=== PATIENT | male | born 1950 | race Caucasian/White ===

== ENCOUNTER 2021-12-25 12:45 | Inpatient (IN) ==
[2021-12-25] MEDS ORDERED: Gadolinium Contrast Agent (WT Based) IV PRN (13:58)
[2021-12-25] MEDS ORDERED: Dextrose Gel 15 GM/37.5 ML TUBE PO PRN ×2 (14:22)
[2021-12-25] MEDS ORDERED: Ondansetron 4 MG/2 ML VIAL IVP PRN (14:22)
[2021-12-25] MEDS ORDERED: D5% in Water 1,000 ML IVC PRN (14:22)
[2021-12-25] MEDS ORDERED: *HR* Dextrose 50 % in Water (Syg) 50 ML SYRINGE IVP PRN (14:22)
[2021-12-25] MEDS ORDERED: Naloxone 0.4 MG/ML INJ IVP PRN (14:22)
[2021-12-25] MEDS ORDERED: Acetaminophen 325 MG TABLET PO PRN (14:22)
[2021-12-25 15:29] LABS: Mean Corpuscular Volume 106.4 fL (83.0-100.0)
[2021-12-25 15:31] LABS: Hematocrit 18.4 % (37.5-50.1); Immature Platelets 5.2 % (1.1-6.1); Mean Corpuscular Hemoglobin 32.9 pg (28.0-33.3); Mean Platelet Volume 11.1 fL (9.4-12.4); Nucleated Red Blood Cells 0.6 /100 WBC (0); Red Blood Count 1.73 M/mcL (4.19-5.50); White Blood Count 3.6 K/mcL (4.3-11.1)
[2021-12-25 15:54] LABS: Albumin 2.9 g/dL (3.5-5.7); Albumin/Globulin Ratio 0.5 (1.1-2.2); Bilirubin,Total 1.2 mg/dL (0.3-1.0); Calcium 10.1 mg/dL (8.6-10.3); Globulin 5.6 g/dL (2.4-3.5); Potassium 4.6 mEq/L (3.5-5.1); Total Protein 8.5 g/dL (6.4-8.9)
[2021-12-25 16:15] LABS: Platelet Count 53 K/mcL (140-400)
[2021-12-25 16:20] LABS: Hemoglobin 5.7 g/dL (12.9-16.9)
[2021-12-25 16:29] LABS: Anisocytosis 1+ (Not Present); Lymphocytes # 2.8 K/mcL (0.6-4.6); Neutrophils # 0.8 K/mcL (1.6-8.9); Platelet Estimate Decreased (Normal)
[2021-12-25] MEDS ORDERED: *HR* Heparin 5,000 UNIT/ML VIAL SQ SCH (18:00)
[2021-12-25] MEDS ORDERED: 0.9 % Sodium Chloride 250 ML ONE (18:24)
[2021-12-25] MEDS: Insulin LISPRO 300 UNITS/3 ML VIAL SUBQ SCH (18:55)
[2021-12-25] MEDS: carvediloL 25 MG TABLET PO SCH (18:55)
[2021-12-25] MEDS: 0.9 % Sodium Chloride 1,000 ML IVC SCH (22:54)
[2021-12-25 23:13] LABS: Estimated Average Glucose 197 mg/dl; Hemoglobin A1C 8.5 %
[2021-12-26 02:06] LABS: Basophils % 0.4 %; Eosinophils % 0.4 %; Immature Granulocytes % 0.4 % (0-4); Mean Platelet Volume 11.3 fL (9.4-12.4); Segmented Neutrophils % 19.6 %
[2021-12-26 02:08] LABS: VBG Ionized Calcium 1.35 mmol/L (1.15-1.35)
[2021-12-26 02:08] LABS: Hematocrit 19.6 % (37.5-50.1); Hemoglobin 6.1 g/dL (12.9-16.9); Immature Platelets 6.4 % (1.1-6.1); Lymphocytes # 1.1 K/mcL (0.6-4.6); Mean Corpuscular HGB Conc 31.1 g/dL (31.6-35.5); Mean Corpuscular Volume 99.5 fL (83.0-100.0); Monocytes # 1.2 K/mcL (0.0-1.3); Monocytes % 41.2 %; Neutrophils # 0.6 K/mcL (1.6-8.9); Red Blood Count 1.97 M/mcL (4.19-5.50); Red Cell Distribution Width 20.7 % (11.5-14.5); White Blood Count 2.8 K/mcL (4.3-11.1)
[2021-12-26 02:14] LABS: Platelet Count 56 K/mcL (140-400)
[2021-12-26 02:27] LABS: Magnesium 1.9 mg/dL (1.6-2.6); Potassium 3.9 mEq/L (3.5-5.1)
[2021-12-26 02:28] LABS: % Iron Saturation 56 % (20-55); Albumin 2.8 g/dL (3.5-5.7); Albumin/Globulin Ratio 0.5 (1.1-2.2); Bilirubin,Direct 0.5 mg/dL (0.0-0.2); Bilirubin,Total 1.5 mg/dL (0.3-1.0); Globulin 5.5 g/dL (2.4-3.5); Iron 135 mcg/dL (65-175); Total Protein 8.3 g/dL (6.4-8.9); Transferrin 173 mg/dL (203-362)
[2021-12-26 02:37] LABS: Prostate Specific Antigen 0.71 ng/mL (Less than 4.00)
[2021-12-26 02:45] LABS: Anisocytosis 2+ (Not Present); Ferritin 332 ng/mL (20-250); Microcytosis Present (Not Present); Platelet Estimate Decreased (Normal)
[2021-12-26 02:50] LABS: Folate 6.4 ng/mL (3.0-16.0)
[2021-12-26] MEDS ORDERED: 0.9 % Sodium Chloride 250 ML ONE (03:09)
[2021-12-26 03:56] LABS: Bilirubin,Urine Negative (Negative); Blood,Urine Negative (Negative); Clarity,Urine Clear (Clear); Color,Urine Light-Yellow (Yellow); Glucose,Urine (UA) Normal (Normal); Ketones,Urine Negative (Negative); Leukocyte Esterase,Urine Negative (Negative); Nitrite,Urine Negative (Negative); PH,Urine 5.5 pH Units (5.0-8.0); Protein,Urine Trace mg/dL (Neg-Trace); Urobilinogen,Urine Normal (Normal)
[2021-12-26 04:10] LABS: Sodium, Urine 53.8 mEq/L
[2021-12-26] MEDS: Insulin LISPRO 300 UNITS/3 ML VIAL SUBQ SCH ×3 (07:30→18:43)
[2021-12-26 07:57] LABS: Hematocrit 21.7 % (37.5-50.1)
[2021-12-26 08:04] LABS: INR 1.3; Prothrombin Time 14.6 Seconds (9.4-12.1)
[2021-12-26] MEDS ORDERED: Lisinopril-HCTZ 20-12.5mg TABLET PO SCH (09:00)
[2021-12-26] MEDS: amLODIPine 5 MG TABLET PO SCH (10:21)
[2021-12-26] MEDS: Cyanocobalamin (B-12) 1,000 MCG/ML VIAL SQ SCH (10:21)
[2021-12-26] MEDS: carvediloL 25 MG TABLET PO SCH ×2 (10:21→18:40)
[2021-12-26] MEDS: *HR* HYDROcodone/Acet 5/325 mg TABLET PO PRN (10:36)
[2021-12-26] MEDS ORDERED: 0.9 % Sodium Chloride 500 ML ONE (10:54)
[2021-12-26] MEDS ORDERED: *HR* Midazolam HCl 2 MG/2 ML VIAL IVP ONE (11:02)
[2021-12-26] MEDS ORDERED: *HR* FentaNYL (PF) 100 MCG/2 ML VIAL IVP ONE (11:02)
[2021-12-26 13:17] LABS: Uric Acid 15.7 mg/dL (2.3-7.6)
[2021-12-26 13:33] LABS: Thyroid Stimulating Hormone 0.152 mcIU/mL (0.340-5.600)
[2021-12-26] MEDS: 0.9 % Sodium Chloride 1,000 ML IVC SCH ×2 (20:46→22:56)
[2021-12-27 05:58] LABS: Red Blood Count 2.16 M/mcL (4.19-5.50)
[2021-12-27 06:00] LABS: Hematocrit 21.6 % (37.5-50.1); Hemoglobin 6.9 g/dL (12.9-16.9); Immature Platelets 5.4 % (1.1-6.1); Mean Corpuscular HGB Conc 31.9 g/dL (31.6-35.5); Mean Corpuscular Hemoglobin 31.9 pg (28.0-33.3); Red Cell Distribution Width 20.8 % (11.5-14.5); White Blood Count 4.4 K/mcL (4.3-11.1)
[2021-12-27 06:09] LABS: Calcium 9.4 mg/dL (8.6-10.3); Magnesium 1.9 mg/dL (1.6-2.6); Potassium 3.8 mEq/L (3.5-5.1)
[2021-12-27 06:11] LABS: Albumin 2.6 g/dL (3.5-5.7); Albumin/Globulin Ratio 0.5 (1.1-2.2); Bilirubin,Direct 0.6 mg/dL (0.0-0.2); Bilirubin,Indirect 0.7 mg/dL (0.0-1.0); Bilirubin,Total 1.3 mg/dL (0.3-1.0); Globulin 5.3 g/dL (2.4-3.5); Total Protein 7.9 g/dL (6.4-8.9)
[2021-12-27 06:14] LABS: Platelet Count 51 K/mcL (140-400)
[2021-12-27 06:39] LABS: Neutrophils # 0.9 K/mcL (1.6-8.9)
[2021-12-27 06:40] LABS: Lymphocytes # 2.8 K/mcL (0.6-4.6); Monocytes # 0.7 K/mcL (0.0-1.3); Platelet Estimate Decreased (Normal)
[2021-12-27] MEDS: Insulin LISPRO 300 UNITS/3 ML VIAL SUBQ SCH ×3 (07:42→17:20)
[2021-12-27] MEDS: carvediloL 25 MG TABLET PO SCH ×2 (08:00→17:20)
[2021-12-27] MEDS: amLODIPine 5 MG TABLET PO SCH (08:01)
[2021-12-27] MEDS: Folic Acid 1 MG TABLET PO SCH (08:01)
[2021-12-27] MEDS ORDERED: 0.9 % Sodium Chloride 250 ML IVC SCH (08:30)
[2021-12-27] MEDS: Cyanocobalamin (B-12) 1,000 MCG/ML VIAL SQ SCH (09:39)
[2021-12-27] MEDS ORDERED: RASBURICASE IVPB ONE (09:47)
[2021-12-27] MEDS ORDERED: SODIUM CHLORIDE 0.9% IVPB ONE (09:47)
[2021-12-27] MEDS: allopurinoL 300 MG TABLET PO SCH (10:11)
[2021-12-27] MEDS: polyethylene glycoL 3350 17 GM POWD.PACK PO SCH (12:49)
[2021-12-27] MEDS: 0.9 % Sodium Chloride 1,000 ML IVC SCH (13:22)
[2021-12-28] MEDS: 0.9 % Sodium Chloride 1,000 ML IVC SCH (04:05)
[2021-12-28 04:57] LABS: Hemoglobin 7.6 g/dL (12.9-16.9)
[2021-12-28 05:00] LABS: Hematocrit 23.3 % (37.5-50.1); Mean Corpuscular HGB Conc 32.6 g/dL (31.6-35.5); Mean Corpuscular Hemoglobin 31.5 pg (28.0-33.3); Mean Corpuscular Volume 96.7 fL (83.0-100.0); Mean Platelet Volume 10.6 fL (9.4-12.4); Nucleated Red Blood Cells 0.9 /100 WBC (0); Red Blood Count 2.41 M/mcL (4.19-5.50); Red Cell Distribution Width 19.9 % (11.5-14.5); White Blood Count 5.5 K/mcL (4.3-11.1)
[2021-12-28 05:04] LABS: Platelet Count 48 K/mcL (140-400)
[2021-12-28 05:16] LABS: BUN/Creatinine Ratio 21 (6-26); Blood Urea Nitrogen 27 mg/dL (8-23); Calcium 9.7 mg/dL (8.6-10.3); Carbon Dioxide 27 mEq/L (23-29); Chloride 101 mEq/L (98-107); Glucose 78 mg/dL (70-105); Magnesium 1.9 mg/dL (1.6-2.6); Osmolality,Calculated 286 (280-300); Potassium 4.2 mEq/L (3.5-5.1); Sodium 136 mEq/L (136-145); eGFR For African Americans > 60 (> 60); eGFR For Non-African Americans 55 (> 60)
[2021-12-28 05:17] LABS: Anisocytosis 1+ (Not Present); Lymphocytes # 3.5 K/mcL (0.6-4.6); Monocytes # 0.7 K/mcL (0.0-1.3); Neutrophils # 1.3 K/mcL (1.6-8.9); Platelet Estimate Decreased (Normal); Reactive Lymphocytes Present (Not Present)
[2021-12-28] MEDS: Insulin LISPRO 300 UNITS/3 ML VIAL SUBQ SCH ×3 (09:13→18:07)
[2021-12-28] MEDS: Folic Acid 1 MG TABLET PO SCH (09:28)
[2021-12-28] MEDS: carvediloL 25 MG TABLET PO SCH ×2 (09:28→18:00)
[2021-12-28] MEDS: amLODIPine 5 MG TABLET PO SCH (09:28)
[2021-12-28] MEDS: polyethylene glycoL 3350 17 GM POWD.PACK PO SCH (09:29)
[2021-12-28] MEDS: allopurinoL 300 MG TABLET PO SCH (09:29)
[2021-12-28] MEDS: Cyanocobalamin (B-12) 1,000 MCG/ML VIAL SQ SCH (09:29)
[2021-12-28 11:29] LABS: Total Volume 24 Hour,Urine 1.4 Liters (0.80-1.80)
[2021-12-28] MEDS: Simethicone 80 MG TAB.CHEW PO SCH ×3 (11:32→20:39)
[2021-12-28 15:47] LABS: Kappa Qnt Free Light Chains 5.65 mg/L (3.30-19.40); Lambda Qnt Free Light Chains 24.82 mg/L (5.71-26.30)
[2021-12-29] MEDS: *HR* HYDROcodone/Acet 5/325 mg TABLET PO PRN (00:20)
[2021-12-29] MEDS: 0.9 % Sodium Chloride 1,000 ML IVC SCH ×2 (00:21→16:43)
[2021-12-29 01:06] LABS: Mean Corpuscular HGB Conc 32.3 g/dL (31.6-35.5); Nucleated Red Blood Cells 0.5 /100 WBC (0); Red Cell Distribution Width 19.5 % (11.5-14.5)
[2021-12-29 01:07] LABS: Hematocrit 23.2 % (37.5-50.1); Hemoglobin 7.5 g/dL (12.9-16.9); Immature Platelets 4.6 % (1.1-6.1); Mean Corpuscular Hemoglobin 31.8 pg (28.0-33.3); Mean Corpuscular Volume 98.3 fL (83.0-100.0); Mean Platelet Volume 10.2 fL (9.4-12.4); Red Blood Count 2.36 M/mcL (4.19-5.50); White Blood Count 3.8 K/mcL (4.3-11.1)
[2021-12-29 01:09] LABS: Platelet Count 41 K/mcL (140-400)
[2021-12-29 01:41] LABS: BUN/Creatinine Ratio 18 (6-26); Blood Urea Nitrogen 22 mg/dL (8-23); Calcium 9.3 mg/dL (8.6-10.3); Carbon Dioxide 25 mEq/L (23-29); Chloride 103 mEq/L (98-107); Glucose 149 mg/dL (70-105); Magnesium 1.9 mg/dL (1.6-2.6); Osmolality,Calculated 292 (280-300); Potassium 3.7 mEq/L (3.5-5.1); Sodium 138 mEq/L (136-145); Uric Acid < 1.5 mg/dL (2.3-7.6); eGFR For African Americans > 60 (> 60); eGFR For Non-African Americans 59 (> 60)
[2021-12-29 02:19] LABS: Lymphocytes # 3.6 K/mcL (0.6-4.6); Neutrophils # 0.2 K/mcL (1.6-8.9)
[2021-12-29 02:20] LABS: Anisocytosis 1+ (Not Present); Hypochromasia Present (Not Present); Platelet Estimate Decreased (Normal)
[2021-12-29] MEDS: carvediloL 25 MG TABLET PO SCH ×2 (08:12→16:40)
[2021-12-29] MEDS: Multivit/Ca/Min/Fe/FA 1 TAB TABLET PO SCH (08:12)
[2021-12-29] MEDS: Insulin LISPRO 300 UNITS/3 ML VIAL SUBQ SCH ×3 (08:13→16:42)
[2021-12-29] MEDS: Simethicone 80 MG TAB.CHEW PO SCH ×3 (08:13→19:45)
[2021-12-29] MEDS: Cyanocobalamin (B-12) 1,000 MCG TABLET PO SCH (08:13)
[2021-12-29] MEDS: Folic Acid 1 MG TABLET PO SCH (08:13)
[2021-12-29] MEDS: polyethylene glycoL 3350 17 GM POWD.PACK PO SCH (08:13)
[2021-12-29] MEDS: allopurinoL 300 MG TABLET PO SCH (08:13)
[2021-12-29] MEDS: amLODIPine 5 MG TABLET PO SCH (08:13)
[2021-12-29] MEDS: Cyanocobalamin (B-12) 1,000 MCG/ML VIAL SQ SCH (08:17)
[2021-12-29 13:02] LABS: Alanine Aminotransferase 81 Units/L (7-52); Albumin 2.5 g/dL (3.5-5.7); Albumin/Globulin Ratio 0.5 (1.1-2.2); Alkaline Phosphatase 73 Units/L (34-104); Aspartate Amino Transferase 66 Units/L (13-39); Bilirubin,Direct 0.6 mg/dL (0.0-0.2); Bilirubin,Indirect 0.7 mg/dL (0.0-1.0); Bilirubin,Total 1.3 mg/dL (0.3-1.0); Globulin 5.5 g/dL (2.4-3.5)
[2021-12-29] MEDS: Insulin DETEMIR 100 UNIT/ML X5UNITS SUBQ SCH (19:45)
[2021-12-30 05:09] LABS: Basophils % 0.4 %; Mean Corpuscular Volume 99.2 fL (83.0-100.0); Nucleated Red Blood Cells 0.4 /100 WBC (0); Red Cell Distribution Width 18.9 % (11.5-14.5)
[2021-12-30 05:11] LABS: Eosinophils % 0.2 %; Immature Granulocytes % 0.8 % (0-4); Immature Platelets 4.4 % (1.1-6.1); Lymphocytes # 1.2 K/mcL (0.6-4.6); Lymphocytes % 25.5 %; Mean Corpuscular Hemoglobin 31.7 pg (28.0-33.3); Mean Platelet Volume 10.8 fL (9.4-12.4); Monocytes % 64.5 %; Neutrophils # 0.4 K/mcL (1.6-8.9); Red Blood Count 2.52 M/mcL (4.19-5.50); Segmented Neutrophils % 8.6 %; White Blood Count 4.7 K/mcL (4.3-11.1)
[2021-12-30 05:12] LABS: Platelet Count 43 K/mcL (140-400)
[2021-12-30 05:25] LABS: Alanine Aminotransferase 82 Units/L (7-52); Albumin 2.5 g/dL (3.5-5.7); Albumin/Globulin Ratio 0.5 (1.1-2.2); Alkaline Phosphatase 87 Units/L (34-104); Aspartate Amino Transferase 52 Units/L (13-39); Bilirubin,Direct 0.5 mg/dL (0.0-0.2); Bilirubin,Indirect 0.6 mg/dL (0.0-1.0); Bilirubin,Total 1.1 mg/dL (0.3-1.0); Globulin 5.4 g/dL (2.4-3.5); Total Protein 7.9 g/dL (6.4-8.9)
[2021-12-30 05:29] LABS: Anisocytosis 2+ (Not Present); Macrocytosis Present (Not Present); Platelet Estimate Marked Decrease (Normal)
[2021-12-30 05:46] LABS: Alpha 2 Globulin (PEP) 0.78 g/dL (0.48-1.05); Beta Globulin (PEP) 4.25 g/dL (0.48-1.10)
[2021-12-30 06:07] LABS: BUN/Creatinine Ratio 14 (6-26); Blood Urea Nitrogen 16 mg/dL (8-23); Calcium 9.4 mg/dL (8.6-10.3); Carbon Dioxide 25 mEq/L (23-29); Chloride 103 mEq/L (98-107); Glucose 101 mg/dL (70-105); Magnesium 1.9 mg/dL (1.6-2.6); Osmolality,Calculated 285 (280-300); Potassium 3.9 mEq/L (3.5-5.1); Sodium 137 mEq/L (136-145); eGFR For African Americans > 60 (> 60); eGFR For Non-African Americans > 60 (> 60)
[2021-12-30] MEDS: Insulin LISPRO 300 UNITS/3 ML VIAL SUBQ SCH ×3 (08:45→16:28)
[2021-12-30] MEDS: Multivit/Ca/Min/Fe/FA 1 TAB TABLET PO SCH (08:54)
[2021-12-30] MEDS: allopurinoL 300 MG TABLET PO SCH (08:55)
[2021-12-30] MEDS: amLODIPine 5 MG TABLET PO SCH (08:55)
[2021-12-30] MEDS: Folic Acid 1 MG TABLET PO SCH (08:55)
[2021-12-30] MEDS: carvediloL 25 MG TABLET PO SCH ×2 (08:55→17:51)
[2021-12-30] MEDS: Cyanocobalamin (B-12) 1,000 MCG TABLET PO SCH (08:55)
[2021-12-30 10:39] LABS: Immunoglobulin G 246 mg/dL (768-1632); Immunoglobulin M < 10 mg/dL (35-263)
[2021-12-30 10:40] LABS: IFE Reflexed IFE Done; Immunoglobulin A 3305 mg/dL (68-408)
[2021-12-30] MEDS: polyethylene glycoL 3350 17 GM POWD.PACK PO SCH (10:45)
[2021-12-30] MEDS ORDERED: Perflutren Lipid Microsphere 1.3 ML in 0.9 % Sodium Chloride 8.7 ML IVP PRN (13:54)
[2021-12-30] MEDS: Insulin DETEMIR 100 UNIT/ML X5UNITS SUBQ SCH (19:55)
[2021-12-31 05:14] LABS: Basophils % 0.4 %; Eosinophils % 0.4 %; Red Blood Count 2.48 M/mcL (4.19-5.50)
[2021-12-31 05:16] LABS: Hematocrit 24.9 % (37.5-50.1); Hemoglobin 7.7 g/dL (12.9-16.9); Immature Granulocytes % 0.7 % (0-4); Immature Platelets 4.5 % (1.1-6.1); Lymphocytes % 24.9 %; Mean Corpuscular HGB Conc 30.9 g/dL (31.6-35.5); Mean Corpuscular Volume 100.4 fL (83.0-100.0); Mean Platelet Volume 10.7 fL (9.4-12.4); Monocytes % 67.3 %; Neutrophils # 0.3 K/mcL (1.6-8.9); Red Cell Distribution Width 18.7 % (11.5-14.5); Segmented Neutrophils % 6.3 %; White Blood Count 5.4 K/mcL (4.3-11.1)
[2021-12-31 05:22] LABS: Lymphocytes # 1.3 K/mcL (0.6-4.6); Monocytes # 3.6 K/mcL (0.0-1.3); Platelet Count 40 K/mcL (140-400)
[2021-12-31 05:34] LABS: Albumin 2.4 g/dL (3.5-5.7); Albumin/Globulin Ratio 0.4 (1.1-2.2); Bilirubin,Direct 0.6 mg/dL (0.0-0.2); Bilirubin,Indirect 0.4 mg/dL (0.0-1.0); Globulin 5.5 g/dL (2.4-3.5); Total Protein 7.9 g/dL (6.4-8.9)
[2021-12-31 05:36] LABS: BUN/Creatinine Ratio 13 (6-26); Blood Urea Nitrogen 16 mg/dL (8-23); Calcium 9.6 mg/dL (8.6-10.3); Carbon Dioxide 26 mEq/L (23-29); Chloride 103 mEq/L (98-107); Glucose 132 mg/dL (70-105); Magnesium 2.1 mg/dL (1.6-2.6); Osmolality,Calculated 289 (280-300); Sodium 138 mEq/L (136-145); eGFR For African Americans > 60 (> 60); eGFR For Non-African Americans 58 (> 60)
[2021-12-31 05:37] LABS: Anisocytosis 1+ (Not Present); Hypochromasia Present (Not Present); Platelet Estimate Decreased (Normal)
[2021-12-31] MEDS: Folic Acid 1 MG TABLET PO SCH (09:32)
[2021-12-31] MEDS: carvediloL 25 MG TABLET PO SCH ×2 (09:32→18:26)
[2021-12-31] MEDS: allopurinoL 300 MG TABLET PO SCH (09:32)
[2021-12-31] MEDS: Cyanocobalamin (B-12) 1,000 MCG TABLET PO SCH (09:32)
[2021-12-31] MEDS: amLODIPine 5 MG TABLET PO SCH (09:32)
[2021-12-31] MEDS: Multivit/Ca/Min/Fe/FA 1 TAB TABLET PO SCH (09:32)
[2021-12-31] MEDS: polyethylene glycoL 3350 17 GM POWD.PACK PO SCH (09:33)
[2021-12-31] MEDS: Insulin LISPRO 300 UNITS/3 ML VIAL SUBQ SCH ×3 (09:33→18:27)
[2021-12-31] MEDS: Insulin DETEMIR 100 UNIT/ML X5UNITS SUBQ SCH (20:34)
[2021-12-31] MEDS ORDERED: 0.9 % Sodium Chloride 250 ML ONE (23:47)
[2022-01-01] MEDS ORDERED: 0.9 % Sodium Chloride 250 ML ONE (02:28)
[2022-01-01 07:24] LABS: Hematocrit 24.1 % (37.5-50.1); Hemoglobin 7.5 g/dL (12.9-16.9); Immature Platelets 3.6 % (1.1-6.1); Mean Corpuscular HGB Conc 31.1 g/dL (31.6-35.5); Mean Corpuscular Volume 99.6 fL (83.0-100.0); Mean Platelet Volume 10.5 fL (9.4-12.4); Red Blood Count 2.42 M/mcL (4.19-5.50); Red Cell Distribution Width 18.5 % (11.5-14.5); White Blood Count 5.6 K/mcL (4.3-11.1)
[2022-01-01 07:27] LABS: Platelet Count 59 K/mcL (140-400)
[2022-01-01 07:49] LABS: BUN/Creatinine Ratio 16 (6-26); Blood Urea Nitrogen 18 mg/dL (8-23); Calcium 9.5 mg/dL (8.6-10.3); Carbon Dioxide 26 mEq/L (23-29); Chloride 102 mEq/L (98-107); Glucose 112 mg/dL (70-105); Magnesium 2.2 mg/dL (1.6-2.6); Osmolality,Calculated 289 (280-300); Potassium 3.7 mEq/L (3.5-5.1); Sodium 138 mEq/L (136-145); eGFR For African Americans > 60 (> 60); eGFR For Non-African Americans > 60 (> 60)
[2022-01-01 07:51] LABS: Albumin 2.5 g/dL (3.5-5.7); Albumin/Globulin Ratio 0.5 (1.1-2.2); Bilirubin,Direct 0.5 mg/dL (0.0-0.2); Bilirubin,Indirect 0.6 mg/dL (0.0-1.0); Bilirubin,Total 1.1 mg/dL (0.3-1.0); Globulin 5.2 g/dL (2.4-3.5); Total Protein 7.7 g/dL (6.4-8.9)
[2022-01-01] MEDS ORDERED: 0.9 % Sodium Chloride 250 ML IVC SCH ×3 (08:00→16:30)
[2022-01-01 08:16] LABS: Lymphocytes # 4.8 K/mcL (0.6-4.6); Neutrophils # 0.8 K/mcL (1.6-8.9); Reactive Lymphocytes Present (Not Present); Smudge Cells Present (Not Present)
[2022-01-01 08:17] LABS: Platelet Estimate Decreased (Normal); Rouleaux Present (Not Present)
[2022-01-01 08:18] LABS: Anisocytosis 1+ (Not Present)
[2022-01-01 08:57] LABS: Hepatitis B Surface Antigen Nonreactive (Nonreactive)
[2022-01-01 09:26] LABS: Hepatitis C Virus Antibody Nonreactive (Nonreactive)
[2022-01-01 09:27] LABS: Hepatitis B Core IgM Nonreactive (Nonreactive)
[2022-01-01 09:29] LABS: Hepatitis A Antibody IgM Nonreactive (Nonreactive)
[2022-01-01] MEDS: Insulin LISPRO 300 UNITS/3 ML VIAL SUBQ SCH ×3 (09:56→16:30)
[2022-01-01] MEDS: Cyanocobalamin (B-12) 1,000 MCG TABLET PO SCH (09:57)
[2022-01-01] MEDS: Folic Acid 1 MG TABLET PO SCH (09:57)
[2022-01-01] MEDS: amLODIPine 5 MG TABLET PO SCH (09:57)
[2022-01-01] MEDS: allopurinoL 300 MG TABLET PO SCH (09:57)
[2022-01-01] MEDS: Multivit/Ca/Min/Fe/FA 1 TAB TABLET PO SCH (09:57)
[2022-01-01] MEDS: polyethylene glycoL 3350 17 GM POWD.PACK PO SCH (09:57)
[2022-01-01] MEDS: carvediloL 25 MG TABLET PO SCH ×2 (09:59→17:30)
[2022-01-01] MEDS ORDERED: Acetaminophen IV 1,000 MG/100 ML BAG IVPB ONE (13:44)
[2022-01-01] MEDS ORDERED: Furosemide 40 MG/4 ML VIAL IVP ONE (15:00)
[2022-01-01] MEDS ORDERED: Furosemide 20 MG/2 ML VIAL IVP ONE (19:16)
[2022-01-01 19:45] LABS: Immature Granulocytes % 0.4 % (0-4); Mean Platelet Volume 9.4 fL (9.4-12.4)
[2022-01-01 19:47] LABS: Basophils % 0.2 %; Eosinophils % 0.4 %; Hematocrit 25.7 % (37.5-50.1); Hemoglobin 8.3 g/dL (12.9-16.9); Lymphocytes # 1.4 K/mcL (0.6-4.6); Mean Corpuscular HGB Conc 32.3 g/dL (31.6-35.5); Mean Corpuscular Hemoglobin 31.2 pg (28.0-33.3); Mean Corpuscular Volume 96.6 fL (83.0-100.0); Mean Platelet Volume 9.6 fL (9.4-12.4); Monocytes # 3.1 K/mcL (0.0-1.3); Monocytes % 62.8 %; Neutrophils # 0.4 K/mcL (1.6-8.9); Red Blood Count 2.66 M/mcL (4.19-5.50); Red Cell Distribution Width 18.4 % (11.5-14.5); Segmented Neutrophils % 8.2 %; White Blood Count 4.9 K/mcL (4.3-11.1)
[2022-01-01 19:49] LABS: Platelet Count 95 K/mcL (140-400)
[2022-01-01] MEDS: 0.9 % Sodium Chloride 1,000 ML IVC SCH ×2 (20:01→20:02)
[2022-01-01 20:16] LABS: Platelet Estimate Decreased (Normal); Reactive Lymphocytes Present (Not Present); Smudge Cells Present (Not Present)
[2022-01-01] MEDS: Insulin DETEMIR 100 UNIT/ML X5UNITS SUBQ SCH (23:03)
[2022-01-02 02:17] LABS: Mean Platelet Volume 9.3 fL (9.4-12.4)
[2022-01-02 02:19] LABS: Basophils % 0.3 %; Immature Granulocytes % 0.3 % (0-4); Mean Corpuscular HGB Conc 31.9 g/dL (31.6-35.5); Red Blood Count 2.68 M/mcL (4.19-5.50)
[2022-01-02 02:21] LABS: Eosinophils % 0.3 %; Hemoglobin 8.3 g/dL (12.9-16.9); Immature Platelets 2.8 % (1.1-6.1); Lymphocytes # 1.8 K/mcL (0.6-4.6); Lymphocytes % 30.4 %; Mean Platelet Volume 9.8 fL (9.4-12.4); Monocytes # 3.6 K/mcL (0.0-1.3); Monocytes % 62.1 %; Neutrophils # 0.4 K/mcL (1.6-8.9); Red Cell Distribution Width 18.4 % (11.5-14.5); Segmented Neutrophils % 6.6 %; White Blood Count 5.8 K/mcL (4.3-11.1)
[2022-01-02 02:23] LABS: Platelet Count 89 K/mcL (140-400)
[2022-01-02 02:30] LABS: BUN/Creatinine Ratio 14 (6-26); Blood Urea Nitrogen 17 mg/dL (8-23); Calcium 9.6 mg/dL (8.6-10.3); Carbon Dioxide 28 mEq/L (23-29); Chloride 99 mEq/L (98-107); Glucose 135 mg/dL (70-105); Magnesium 2.1 mg/dL (1.6-2.6); Osmolality,Calculated 290 (280-300); Potassium 3.4 mEq/L (3.5-5.1); Sodium 138 mEq/L (136-145); eGFR For African Americans > 60 (> 60); eGFR For Non-African Americans > 60 (> 60)
[2022-01-02 02:31] LABS: Albumin 2.6 g/dL (3.5-5.7); Albumin/Globulin Ratio 0.5 (1.1-2.2); Bilirubin,Direct 0.5 mg/dL (0.0-0.2); Bilirubin,Indirect 0.8 mg/dL (0.0-1.0); Bilirubin,Total 1.3 mg/dL (0.3-1.0); Globulin 5.5 g/dL (2.4-3.5); Total Protein 8.1 g/dL (6.4-8.9)
[2022-01-02 02:52] LABS: Anisocytosis 1+ (Not Present); Platelet Estimate Decreased (Normal)
[2022-01-02 02:53] LABS: Macrocytosis Present (Not Present); Smudge Cells Present (Not Present)
[2022-01-02 06:12] LABS: Mean Platelet Volume 9.4 fL (9.4-12.4)
[2022-01-02] MEDS ORDERED: Vancomycin 1,000 MG VIAL ONE ×2 (08:14→15:21)
[2022-01-02] MEDS ORDERED: Bupivacaine/EPI 1:200k 0.25% 50 ML VIAL ONE ×2 (08:14→15:21)
[2022-01-02] MEDS: Cyanocobalamin (B-12) 1,000 MCG TABLET PO SCH (08:53)
[2022-01-02] MEDS: Folic Acid 1 MG TABLET PO SCH (08:53)
[2022-01-02] MEDS: polyethylene glycoL 3350 17 GM POWD.PACK PO SCH (08:53)
[2022-01-02] MEDS: allopurinoL 300 MG TABLET PO SCH (08:53)
[2022-01-02] MEDS: amLODIPine 5 MG TABLET PO SCH (08:53)
[2022-01-02] MEDS: Multivit/Ca/Min/Fe/FA 1 TAB TABLET PO SCH (08:53)
[2022-01-02] MEDS: carvediloL 25 MG TABLET PO SCH ×2 (08:53→16:44)
[2022-01-02] MEDS: Insulin LISPRO 300 UNITS/3 ML VIAL SUBQ SCH ×3 (08:54→16:44)
[2022-01-02 14:41] LABS: Basophils % 0.2 %; Eosinophils % 0.4 %; Hemoglobin 8.3 g/dL (12.9-16.9); Immature Granulocytes % 0.6 % (0-4); Lymphocytes # 1.7 K/mcL (0.6-4.6); Lymphocytes % 31.2 %; Mean Corpuscular HGB Conc 31.9 g/dL (31.6-35.5); Mean Corpuscular Hemoglobin 30.9 pg (28.0-33.3); Mean Corpuscular Volume 96.7 fL (83.0-100.0); Mean Platelet Volume 9.4 fL (9.4-12.4); Monocytes # 3.3 K/mcL (0.0-1.3); Monocytes % 61.2 %; Neutrophils # 0.4 K/mcL (1.6-8.9); Platelet Count 105 K/mcL (140-400); Red Blood Count 2.69 M/mcL (4.19-5.50); Red Cell Distribution Width 18.6 % (11.5-14.5); Segmented Neutrophils % 6.4 %; White Blood Count 5.4 K/mcL (4.3-11.1)
[2022-01-02 15:12] LABS: Platelet Estimate Slight Decrease (Normal); Reactive Lymphocytes Present (Not Present)
[2022-01-02] MEDS ORDERED: *HR* Phenylephrine 10 MG/ML VIAL ONE (15:23)
[2022-01-02] MEDS ORDERED: *HR* Rocuronium Bromide 50 MG/5 ML VIAL ONE (15:28)
[2022-01-02] MEDS ORDERED: Ondansetron 4 MG/2 ML VIAL ONE (15:28)
[2022-01-02] MEDS ORDERED: *HR* FentaNYL (PF) 100 MCG/2 ML VIAL ONE ×2 (15:28→22:19)
[2022-01-02] MEDS ORDERED: *HR* Propofol 200 MG/20 ML VIAL IVP ONE (15:28)
[2022-01-02] MEDS ORDERED: Lidocaine -MPF 4% 5 ML AMPUL ONE (15:28)
[2022-01-02] MEDS ORDERED: 0.9 % Sodium Chloride 1,000 ML ONE (15:33)
[2022-01-02] MEDS ORDERED: *HR* Remifentanil 2 MG VIAL IVP ONE (15:41)
[2022-01-02] MEDS ORDERED: tiZANidine 4 MG TABLET PO ONE (15:41)
[2022-01-02] MEDS ORDERED: Famotidine 20 MG/2 ML VIAL IVP ONE (15:41)
[2022-01-02] MEDS ORDERED: Gabapentin 300 MG CAPSULE PO ONE (15:42)
[2022-01-02] MEDS ORDERED: *HR* Norepinephrine 4 MG/4 ML VIAL IVC ONE (15:47)
[2022-01-02] MEDS ORDERED: Albumin Human 5% 0 GM/0 ML IV.SOLN ONE (15:48)
[2022-01-02] MEDS ORDERED: Ondansetron 4 MG/2 ML VIAL IVP PRN ×3 (17:14→23:52)
[2022-01-02] MEDS ORDERED: *HR* Remifentanil 1 MG VIAL IVP ONE (19:58)
[2022-01-02] MEDS ORDERED: Tranexamic Acid 1,000 MG/10 ML VIAL ONE (20:05)
[2022-01-02 20:56] LABS: INR 1.4; Prothrombin Time 15.4 Seconds (9.4-12.1)
[2022-01-02] MEDS: *HR* HYDROmorphone PF 0.5 MG/0.5 ML SYRINGE IVP PRN ×2 (22:26→22:35)
[2022-01-02 22:51] LABS: Basophils % 0.3 %; Eosinophils % 0.1 %; Mean Corpuscular Volume 95.8 fL (83.0-100.0); Mean Platelet Volume 9.9 fL (9.4-12.4)
[2022-01-02 22:53] LABS: Hematocrit 24.8 % (37.5-50.1); Hemoglobin 8.1 g/dL (12.9-16.9); Immature Granulocytes % 0.3 % (0-4); Immature Platelets 2.5 % (1.1-6.1); Lymphocytes # 2.7 K/mcL (0.6-4.6); Lymphocytes % 36.5 %; Mean Corpuscular HGB Conc 32.7 g/dL (31.6-35.5); Mean Corpuscular Hemoglobin 31.3 pg (28.0-33.3); Monocytes # 4.3 K/mcL (0.0-1.3); Monocytes % 58.1 %; Neutrophils # 0.4 K/mcL (1.6-8.9); Platelet Count 102 K/mcL (140-400); Red Blood Count 2.59 M/mcL (4.19-5.50); Red Cell Distribution Width 18.6 % (11.5-14.5); Segmented Neutrophils % 4.7 %; White Blood Count 7.4 K/mcL (4.3-11.1)
[2022-01-02 23:08] LABS: Alanine Aminotransferase 56 Units/L (7-52); Albumin 2.3 g/dL (3.5-5.7); Albumin/Globulin Ratio 0.5 (1.1-2.2); Alkaline Phosphatase 82 Units/L (34-104); Aspartate Amino Transferase 54 Units/L (13-39); BUN/Creatinine Ratio 14 (6-26); Bilirubin,Total 1.6 mg/dL (0.3-1.0); Blood Urea Nitrogen 17 mg/dL (8-23); Calcium 9.2 mg/dL (8.6-10.3); Carbon Dioxide 26 mEq/L (23-29); Chloride 104 mEq/L (98-107); Globulin 4.9 g/dL (2.4-3.5); Glucose 109 mg/dL (70-105); Osmolality,Calculated 292 (280-300); Potassium 3.7 mEq/L (3.5-5.1); Sodium 140 mEq/L (136-145); Total Protein 7.2 g/dL (6.4-8.9); eGFR For African Americans > 60 (> 60); eGFR For Non-African Americans > 60 (> 60)
[2022-01-02 23:23] LABS: Anisocytosis 1+ (Not Present); Platelet Estimate Decreased (Normal); Reactive Lymphocytes Present (Not Present)
[2022-01-02] MEDS ORDERED: Ringers Solution, Lactated 1,000 ML IVC SCH (23:52)
[2022-01-02] MEDS ORDERED: Naloxone 0.4 MG/ML INJ IVP PRN ×2 (23:52)
[2022-01-02] MEDS ORDERED: Acetaminophen 325 MG TABLET PO PRN (23:52)
[2022-01-03] MEDS: *HR* HYDROcodone/Acet 5/325 mg TABLET PO PRN ×2 (02:47→18:19)
[2022-01-03] MEDS: CeFAZolin 2 GM/120 ML BAG IVPB SCH ×2 (03:51→13:05)
[2022-01-03 07:25] LABS: Basophils % 0.5 %; Eosinophils % 0.3 %; Hemoglobin 7.6 g/dL (12.9-16.9); Immature Granulocytes % 0.8 % (0-4); Mean Corpuscular Hemoglobin 30.5 pg (28.0-33.3); Red Blood Count 2.49 M/mcL (4.19-5.50); Red Cell Distribution Width 18.9 % (11.5-14.5)
[2022-01-03 07:28] LABS: Hematocrit 24.1 % (37.5-50.1); Immature Platelets 1.9 % (1.1-6.1); Lymphocytes # 1.2 K/mcL (0.6-4.6); Lymphocytes % 31.9 %; Mean Corpuscular HGB Conc 31.5 g/dL (31.6-35.5); Mean Corpuscular Volume 96.8 fL (83.0-100.0); Mean Platelet Volume 9.7 fL (9.4-12.4); Monocytes % 57.6 %; Neutrophils # 0.3 K/mcL (1.6-8.9); Segmented Neutrophils % 8.9 %; White Blood Count 3.7 K/mcL (4.3-11.1)
[2022-01-03 07:32] LABS: INR 1.3; Prothrombin Time 14.3 Seconds (9.4-12.1)
[2022-01-03 07:34] LABS: Activated Partial Thrombo Time 31.4 Seconds (26.0-36.0)
[2022-01-03 07:35] LABS: Monocytes # 2.1 K/mcL (0.0-1.3); Platelet Count 90 K/mcL (140-400)
[2022-01-03] MEDS ORDERED: Furosemide 40 MG/4 ML VIAL IVP ONE (07:39)
[2022-01-03 07:40] LABS: BUN/Creatinine Ratio 16 (6-26); Blood Urea Nitrogen 21 mg/dL (8-23); Calcium 9.5 mg/dL (8.6-10.3); Carbon Dioxide 27 mEq/L (23-29); Chloride 101 mEq/L (98-107); Glucose 188 mg/dL (70-105); Osmolality,Calculated 294 (280-300); Sodium 138 mEq/L (136-145); eGFR For African Americans > 60 (> 60); eGFR For Non-African Americans 55 (> 60)
[2022-01-03 08:19] LABS: Platelet Estimate Decreased (Normal); Reactive Lymphocytes Present (Not Present)
[2022-01-03] MEDS: amLODIPine 5 MG TABLET PO SCH (09:25)
[2022-01-03] MEDS: carvediloL 25 MG TABLET PO SCH ×2 (09:25→18:12)
[2022-01-03] MEDS: Cyanocobalamin (B-12) 1,000 MCG TABLET PO SCH (09:26)
[2022-01-03] MEDS: Multivit/Ca/Min/Fe/FA 1 TAB TABLET PO SCH (09:26)
[2022-01-03] MEDS: allopurinoL 300 MG TABLET PO SCH (09:26)
[2022-01-03] MEDS: Folic Acid 1 MG TABLET PO SCH (09:26)
[2022-01-03] MEDS: Insulin LISPRO 300 UNITS/3 ML VIAL SUBQ SCH ×3 (09:37→18:19)
[2022-01-03] MEDS: *HR* OxyCODONE Immed Rel 5 MG TABLET PO PRN ×2 (14:06→22:45)
[2022-01-03] MEDS: Insulin DETEMIR 100 UNIT/ML X5UNITS SUBQ SCH (22:45)
[2022-01-04] MEDS ORDERED: *HR* LORazepam 0.5 MG TABLET PO PRN
[2022-01-04] MEDS ORDERED: dexAMETHasone 4 MG TABLET PO SCH
[2022-01-04 06:26] LABS: Basophils % 0.4 %; Eosinophils % 0.2 %; Hemoglobin 7.7 g/dL (12.9-16.9)
[2022-01-04 06:28] LABS: Hematocrit 24.4 % (37.5-50.1); Immature Granulocytes % 1.5 % (0-4); Immature Platelets 3.6 % (1.1-6.1); Lymphocytes # 1.8 K/mcL (0.6-4.6); Lymphocytes % 33.8 %; Mean Corpuscular HGB Conc 31.6 g/dL (31.6-35.5); Mean Corpuscular Hemoglobin 31.2 pg (28.0-33.3); Mean Corpuscular Volume 98.8 fL (83.0-100.0); Mean Platelet Volume 10.4 fL (9.4-12.4); Monocytes # 3.1 K/mcL (0.0-1.3); Monocytes % 57.4 %; Neutrophils # 0.4 K/mcL (1.6-8.9); Red Blood Count 2.47 M/mcL (4.19-5.50); Red Cell Distribution Width 18.4 % (11.5-14.5); Segmented Neutrophils % 6.7 %; White Blood Count 5.4 K/mcL (4.3-11.1)
[2022-01-04 06:51] LABS: BUN/Creatinine Ratio 16 (6-26); Blood Urea Nitrogen 19 mg/dL (8-23); Calcium 9.8 mg/dL (8.6-10.3); Carbon Dioxide 30 mEq/L (23-29); Chloride 98 mEq/L (98-107); Glucose 110 mg/dL (70-105); Osmolality,Calculated 285 (280-300); Potassium 3.6 mEq/L (3.5-5.1); Sodium 136 mEq/L (136-145); eGFR For African Americans > 60 (> 60); eGFR For Non-African Americans > 60 (> 60)
[2022-01-04 07:19] LABS: Anisocytosis 1+ (Not Present); Platelet Count 67 K/mcL (140-400); Platelet Estimate Decreased (Normal)
[2022-01-04] MEDS: carvediloL 25 MG TABLET PO SCH ×2 (08:06→19:31)
[2022-01-04] MEDS: Folic Acid 1 MG TABLET PO SCH (08:06)
[2022-01-04] MEDS: allopurinoL 300 MG TABLET PO SCH (08:06)
[2022-01-04] MEDS: Multivit/Ca/Min/Fe/FA 1 TAB TABLET PO SCH (08:06)
[2022-01-04] MEDS: amLODIPine 5 MG TABLET PO SCH (08:07)
[2022-01-04] MEDS: Cyanocobalamin (B-12) 1,000 MCG TABLET PO SCH (08:07)
[2022-01-04] MEDS: Insulin LISPRO 300 UNITS/3 ML VIAL SUBQ SCH ×3 (08:07→19:31)
[2022-01-04] MEDS: *HR* OxyCODONE Immed Rel 5 MG TABLET PO PRN (10:14)
[2022-01-04] MEDS: polyethylene glycoL 3350 17 GM POWD.PACK PO SCH (12:04)
[2022-01-04] MEDS ORDERED: Furosemide 40 MG/4 ML VIAL IVP ONE (13:00)
[2022-01-04] MEDS: Acyclovir 200 MG CAPSULE PO SCH ×2 (19:16→22:12)
[2022-01-04] MEDS: Insulin DETEMIR 100 UNIT/ML X5UNITS SUBQ SCH (22:13)
[2022-01-05 06:11] LABS: Hemoglobin 8.3 g/dL (12.9-16.9)
[2022-01-05 06:13] LABS: Basophils % 0.5 %; Eosinophils % 0.3 %; Hematocrit 26.3 % (37.5-50.1); Immature Granulocytes % 0.3 % (0-4); Immature Platelets 3.9 % (1.1-6.1); Lymphocytes # 1.2 K/mcL (0.6-4.6); Lymphocytes % 32.1 %; Mean Corpuscular HGB Conc 31.6 g/dL (31.6-35.5); Mean Corpuscular Hemoglobin 31.1 pg (28.0-33.3); Mean Corpuscular Volume 98.5 fL (83.0-100.0); Monocytes # 1.9 K/mcL (0.0-1.3); Monocytes % 50.7 %; Neutrophils # 0.6 K/mcL (1.6-8.9); Red Blood Count 2.67 M/mcL (4.19-5.50); Red Cell Distribution Width 17.7 % (11.5-14.5); Segmented Neutrophils % 16.1 %; White Blood Count 3.7 K/mcL (4.3-11.1)
[2022-01-05 06:16] LABS: Platelet Count 55 K/mcL (140-400)
[2022-01-05 06:26] LABS: Phosphorous 3.9 mg/dL (2.7-4.5); Uric Acid 4.2 mg/dL (2.3-7.6)
[2022-01-05 06:29] LABS: Albumin 2.6 g/dL (3.5-5.7); Albumin/Globulin Ratio 0.5 (1.1-2.2); Bilirubin,Direct 1.4 mg/dL (0.0-0.2); Bilirubin,Indirect 0.8 mg/dL (0.0-1.0); Bilirubin,Total 2.2 mg/dL (0.3-1.0); Globulin 5.1 g/dL (2.4-3.5); Total Protein 7.7 g/dL (6.4-8.9)
[2022-01-05 06:35] LABS: BUN/Creatinine Ratio 23 (6-26); Blood Urea Nitrogen 21 mg/dL (8-23); Calcium 9.9 mg/dL (8.6-10.3); Carbon Dioxide 31 mEq/L (23-29); Chloride 97 mEq/L (98-107); Glucose 218 mg/dL (70-105); Magnesium 2.2 mg/dL (1.6-2.6); Osmolality,Calculated 290 (280-300); Potassium 4.5 mEq/L (3.5-5.1); Sodium 135 mEq/L (136-145); eGFR For African Americans > 60 (> 60); eGFR For Non-African Americans > 60 (> 60)
[2022-01-05] MEDS: Multivit/Ca/Min/Fe/FA 1 TAB TABLET PO SCH (08:29)
[2022-01-05] MEDS: carvediloL 25 MG TABLET PO SCH ×2 (08:30→17:33)
[2022-01-05] MEDS: Cyanocobalamin (B-12) 1,000 MCG TABLET PO SCH (08:30)
[2022-01-05] MEDS: amLODIPine 5 MG TABLET PO SCH (08:30)
[2022-01-05] MEDS: Folic Acid 1 MG TABLET PO SCH (08:30)
[2022-01-05] MEDS: Acyclovir 200 MG CAPSULE PO SCH ×2 (08:30→21:18)
[2022-01-05] MEDS: polyethylene glycoL 3350 17 GM POWD.PACK PO SCH (08:31)
[2022-01-05] MEDS: allopurinoL 300 MG TABLET PO SCH (08:31)
[2022-01-05] MEDS: Insulin LISPRO 300 UNITS/3 ML VIAL SUBQ SCH ×3 (08:39→17:39)
[2022-01-05 16:32] LABS: Basophils % 0.3 %; Red Cell Distribution Width 17.4 % (11.5-14.5)
[2022-01-05 16:34] LABS: Hematocrit 24.7 % (37.5-50.1); Immature Platelets 3.6 % (1.1-6.1); Lymphocytes # 0.8 K/mcL (0.6-4.6); Lymphocytes % 26.6 %; Mean Corpuscular HGB Conc 32.4 g/dL (31.6-35.5); Mean Corpuscular Hemoglobin 31.4 pg (28.0-33.3); Mean Corpuscular Volume 96.9 fL (83.0-100.0); Mean Platelet Volume 10.3 fL (9.4-12.4); Monocytes % 54.3 %; Neutrophils # 0.5 K/mcL (1.6-8.9); Red Blood Count 2.55 M/mcL (4.19-5.50); Segmented Neutrophils % 17.8 %
[2022-01-05 16:39] LABS: Monocytes # 1.6 K/mcL (0.0-1.3); Platelet Count 51 K/mcL (140-400)
[2022-01-05 16:54] LABS: Anisocytosis 1+ (Not Present); Platelet Estimate Decreased (Normal)
[2022-01-05] MEDS: Insulin DETEMIR 100 UNIT/ML X5UNITS SUBQ SCH (21:18)
[2022-01-06 05:01] LABS: Mean Corpuscular Volume 97.7 fL (83.0-100.0)
[2022-01-06 05:02] LABS: Hematocrit 25.1 % (37.5-50.1); Lymphocytes # 0.7 K/mcL (0.6-4.6); Mean Corpuscular HGB Conc 31.9 g/dL (31.6-35.5); Mean Corpuscular Hemoglobin 31.1 pg (28.0-33.3); Mean Platelet Volume 10.5 fL (9.4-12.4); Red Blood Count 2.57 M/mcL (4.19-5.50); Red Cell Distribution Width 17.3 % (11.5-14.5); White Blood Count 2.7 K/mcL (4.3-11.1)
[2022-01-06 05:06] LABS: Platelet Count 46 K/mcL (140-400)
[2022-01-06 05:07] LABS: Calcium 9.5 mg/dL (8.6-10.3); Phosphorous 2.8 mg/dL (2.7-4.5); Uric Acid 4.6 mg/dL (2.3-7.6)
[2022-01-06 06:03] LABS: Monocytes # 1.1 K/mcL (0.0-1.3); Neutrophils # 0.9 K/mcL (1.6-8.9)
[2022-01-06 06:04] LABS: Platelet Estimate Decreased (Normal)
[2022-01-06] MEDS: Acyclovir 200 MG CAPSULE PO SCH (08:06)
[2022-01-06] MEDS: polyethylene glycoL 3350 17 GM POWD.PACK PO SCH (08:06)
[2022-01-06] MEDS: Multivit/Ca/Min/Fe/FA 1 TAB TABLET PO SCH (08:07)
[2022-01-06] MEDS: amLODIPine 5 MG TABLET PO SCH (08:07)
[2022-01-06] MEDS: Folic Acid 1 MG TABLET PO SCH (08:07)
[2022-01-06] MEDS: allopurinoL 300 MG TABLET PO SCH (08:07)
[2022-01-06] MEDS: carvediloL 25 MG TABLET PO SCH ×2 (08:08→18:29)
[2022-01-06] MEDS: Cyanocobalamin (B-12) 1,000 MCG TABLET PO SCH (08:08)
[2022-01-06] MEDS: Insulin LISPRO 300 UNITS/3 ML VIAL SUBQ SCH ×3 (08:10→18:30)
[2022-01-06] MEDS ORDERED: 0.9 % Sodium Chloride 250 ML ONE (12:58)
[2022-01-06 15:04] VITALS: PULSE 73
[2022-01-06 16:32] VITALS: BP 143/72; TEMP 98.2; O2SAT 99
[2022-01-06 17:12] LABS: Hematocrit 23.3 % (37.5-50.1); Hemoglobin 7.5 g/dL (12.9-16.9); Mean Corpuscular HGB Conc 32.2 g/dL (31.6-35.5); Mean Corpuscular Hemoglobin 31.3 pg (28.0-33.3); Mean Corpuscular Volume 97.1 fL (83.0-100.0); Mean Platelet Volume 10.3 fL (9.4-12.4); Neutrophils # 0.4 K/mcL (1.6-8.9); Red Cell Distribution Width 17.2 % (11.5-14.5)
[2022-01-06 17:14] LABS: Platelet Count 44 K/mcL (140-400)
[2022-01-06 17:33] LABS: Anisocytosis 1+ (Not Present); Eosinophils # 0.1 K/mcL (0.0-0.6); Hypochromasia Present (Not Present); Lymphocytes # 2.3 K/mcL (0.6-4.6); Monocytes # 0.2 K/mcL (0.0-1.3)
[2022-01-06 17:34] LABS: Platelet Estimate Marked Decrease (Normal)
[2022-01-06] MEDS ORDERED: 0.9 % Sodium Chloride 250 ML IVC SCH (17:45)
[2022-01-06] MEDS ORDERED: Insulin DETEMIR 100 UNIT/ML X5UNITS SUBQ SCH (21:00)
[2022-01-07] MEDS ORDERED: *HR* LORazepam 0.5 MG TABLET PO PRN
[2022-01-11] MEDS ORDERED: *HR* LORazepam 0.5 MG TABLET PO PRN
== END 2022-01-06 20:12 | disposition short-term general hospital (02) | DRG 456 ==
LOC: 4WAOSI → SUATTDRO 13:04
PROVIDERS: ADMIT Hospitalist; ATTEND Internal Medicine